=== PATIENT | male | born 2000 | race African-American/Black ===

== ENCOUNTER 2025-01-13 00:33 | Emergency (ER) | payer SELFPAY ==
[2025-01-13 00:41] VITALS: RESP 16; BMI 23.2
[2025-01-13 00:42] VITALS: BP 109/76; PULSE 84; TEMP 97.9
== END 2025-01-13 01:10 | disposition home or self-care (01) ==
LOC: FER 00:33
DX: S30.21XA Contusion of penis, initial encounter (principal); X58.XXXA Exposure to other specified factors, initial encounter
CPT/HCPCS: 99283-25

== ENCOUNTER 2025-01-26 16:45 | Emergency (ER) | payer SELFPAY ==
[2025-01-26 17:07] VITALS: RESP 18; TEMP 98.4; BMI 22.1
[2025-01-26] MEDS ORDERED: METOCLOPRAMIDE HCL INJECTION 10 MG/2 ML VIAL ONE (17:11)
[2025-01-26] MEDS ORDERED: ACETAMINOPHEN INJECTION 100 ML ONE (17:12)
[2025-01-26] MEDS: LACTATED RINGERS SOLUTION 1000 ML INFUS.BAG IV ONE (17:25)
[2025-01-26] MEDS: METOCLOPRAMIDE HCL INJECTION 10 MG/2 ML VIAL IVPB ONE (17:30)
[2025-01-26] MEDS: ACETAMINOPHEN 1000 MG/100 ML BAG IVPB ONE (17:33)
[2025-01-26 17:51] LABS: ABSOLUTE IMMATURE GRANULOCYTES 0.00 x10^3/uL (0.0-0.031); BASOPHILS # 0.03 x10^3/uL (0.01-0.08); EOSINOPHIL % 2.2 % (0.8-7.0); EOSINOPHILS # 0.15 x10^3/uL (0.04-0.54); MCHC 32.6 g/dl (32.3-36.5); MEAN CELL VOLUME 87.3 fl (79.0-92.2); MEAN PLT VOLUME 10.3 fl (9.4-12.4); MONOCYTE # 0.54 x10^3/uL (0.30-0.82); MONOCYTE % 8.0 % (5.3-12.2); RDW 13.5 % (11.9-15.3)
[2025-01-26 18:00] LABS: ALK PHOS 74.0 U/L (45-117); CO2 29.0 mmol/L (21-32); CREATININE 1.0 mg/dl (0.6-1.3); GLUCOSE,RANDOM 95.0 mg/dl (74-106); SGOT/AST 16.0 U/L (15-37); SGPT/ALT 21.0 U/L (7-52); TOT PROT 6.9 g/dl (6.4-8.2)
[2025-01-26 19:10] VITALS: BP 102/68; PULSE 56
== END 2025-01-26 20:18 | disposition home or self-care (01) ==
LOC: FER 16:45
PROC: 3E033NZ Introduction of Analgesics, Hypnotics, Sedatives into Peripheral Vein, Percutaneous Approach (ICD-10-PCS; principal; 2025-01-26)
PROC: 3E033GC Introduction of Other Therapeutic Substance into Peripheral Vein, Percutaneous Approach (ICD-10-PCS; 2025-01-26)
DX: J01.90 Acute sinusitis, unspecified (principal); R51.9 Headache, unspecified; R09.81 Nasal congestion; R53.81 Other malaise; H53.149 Visual discomfort, unspecified; R11.0 Nausea
CPT/HCPCS: 36415; 70450-TC; 70486-TC; 71045-TC-FY; 80053; 83735; 85025; 87637-QW; 99285-25